=== PATIENT | female | born 1945 | race Two or more races ===

== ENCOUNTER 2020-11-26 21:36 | Inpatient (IN) | payer MEDICARE, MEDICAID ==
[~2020-11-26] VITALS: Ht 157.5 cm; Wt 74.8 kg
[2020-11-26 23:14] LABS: Basophils # (auto) 0 10 ^3/uL (0-0.2); Basophils % (auto) 0.2 % (0.0-2.0); Eosinophils # (auto) 0 10 ^3/uL (0-0.8); Eosinophils % (auto) 0.5 % (0.0-7.0); Hematocrit 41.8 % (36.0-46.0); Hemoglobin 14.2 g/dL (12.2-16.2); Lymphocytes # (auto) 2.1 10 ^3/uL (0.4-5.4); Lymphocytes % (auto) 21.5 % (10.0-50.0); Mean Corpuscular Hemoglobin 32.3 pg (28.0-32.0); Mean Corpuscular Volume 94.9 fL (80.0-100.0); Monocytes # (auto) 0.5 10 ^3/uL (0-1.3); Monocytes % (auto) 5.6 % (0.0-12.0); Neutrophils % (auto) 72.2 % (37.0-80.0); Nucleated Red Blood Cells % 0.1 %; Platelet Count (auto) 242 10^3/uL (140-450); Red Cell Distribution Width 14.7 % (11.8-14.3); White Blood Cell 9.7 10^3/uL (4.4-10.8)
[2020-11-26 23:32] LABS: Albumin 3.7 g/dL (3.4-5.0); Anion Gap 10 (5-15); Blood Urea Nitrogen 13 mg/dL (7-18); Calcium 9.3 mg/dL (8.5-10.1); Carbon Dioxide 24 mmol/L (21-32); Chloride 104 mmol/L (98-107); Glucose 196 mg/dL (74-106); Sodium 138 mmol/L (136-145)
[2020-11-26 23:34] LABS: GFR African American 114 mL/min; GFR Non-African American 94 mL/min; Lipase 199 U/L (73-393)
[2020-11-26 23:40] LABS: Alanine Aminotransferase 33 U/L (13-56); Alkaline Phosphatase 66 U/L (45-117); Aspartate Aminotransferase 49 U/L (15-37); Bilirubin, Total 0.5 mg/dL (0.2-1.0); Total Protein 7.3 g/dL (6.4-8.2)
[2020-11-27] MEDS ORDERED: IOHEXOL 300 MG/ML 100ML BOTTLE IJ ONE (01:47)
[2020-11-27 04:14] LABS: Lactic Acid w/Reflex 3.1 mmol/L (0.4-2.0)
[2020-11-27 04:22] LABS: INR 1.01 (0.9-1.15)
[2020-11-27] MEDS ORDERED: NITROGLYCERIN 0.4 MG SL TAB SL PRN (05:15)
[2020-11-27] MEDS ORDERED: MORPHINE SULF INJ 2 MG/ML SYRINGE 1ML IV PRN (05:15)
[2020-11-27] MEDS ORDERED: DEXTROSE (50%) 50ML SYRG IV PRN (05:15)
[2020-11-27] MEDS: SODIUM CHLORIDE 0.9% 1,000 ML IV SCH ×2 (05:15→17:12)
[2020-11-27] MEDS ORDERED: MORPHINE SULFATE 4 MG/ML SYR/VIAL IV PRN (05:15)
[2020-11-27] MEDS ORDERED: ONDANSETRON HCL 4 MG/2 ML VIAL IV PRN (05:15)
[2020-11-27] MEDS ORDERED: hydrALAZINE HCL 20 MG/ML VL IV PRN (05:15)
[2020-11-27] MEDS: ACCU-CHEK COMFORT CURVE STRIP VI SCH ×3 (06:45→19:11)
[2020-11-27] MEDS: InsuLIN REG 1unit/0.01ml Soln (100units/ml) SC SCH ×3 (07:14→19:11)
[2020-11-27] MEDS ORDERED: GASTROGRAFIN 120 ML SOL ONE (08:45)
[2020-11-27] MEDS: PANTOPRAZOLE 40 MG/10 ML VIAL INJ IV SCH (10:38)
[2020-11-27 11:05] LABS: Urine Bacteria NONE SEEN /hpf (None Seen); Urine Blood Negative /uL (Negative); Urine Specific Gravity 1.029 (1.001-1.035); Urine WBC 2 /hpf (0 - 5)
[2020-11-27] MEDS ORDERED: LOPERAMIDE HCL 2 MG CAP PO ONE (12:45)
[2020-11-27] MEDS ORDERED: LOPERAMIDE HCL 2 MG CAP PO PRN (12:45)
[2020-11-28] MEDS: ACCU-CHEK COMFORT CURVE STRIP VI SCH ×3 (01:00→12:00)
[2020-11-28] MEDS: InsuLIN REG 1unit/0.01ml Soln (100units/ml) SC SCH ×3 (01:10→12:00)
[2020-11-28 06:51] LABS: Basophils # (auto) 0 10 ^3/uL (0-0.2); Basophils % (auto) 0.5 % (0.0-2.0); Eosinophils # (auto) 0.1 10 ^3/uL (0-0.8); Eosinophils % (auto) 2.1 % (0.0-7.0); Hematocrit 36.8 % (36.0-46.0); Hemoglobin 12.4 g/dL (12.2-16.2); Lymphocytes # (auto) 2.1 10 ^3/uL (0.4-5.4); Lymphocytes % (auto) 32.1 % (10.0-50.0); Mean Corpuscular Hemoglobin 31.7 pg (28.0-32.0); Mean Corpuscular Hgb Conc. 33.6 g/dL (32.0-36.0); Mean Corpuscular Volume 94.3 fL (80.0-100.0); Monocytes # (auto) 0.5 10 ^3/uL (0-1.3); Monocytes % (auto) 7.2 % (0.0-12.0); Neutrophils # (auto) 3.7 10 ^3/uL (1.6-8.6); Neutrophils % (auto) 58.1 % (37.0-80.0); Nucleated Red Blood Cells % 0.1 %; Platelet Count (auto) 197 10^3/uL (140-450); Red Cell Distribution Width 14.5 % (11.8-14.3); White Blood Cell 6.4 10^3/uL (4.4-10.8)
[2020-11-28 07:17] LABS: Calcium 8.1 mg/dL (8.5-10.1); Potassium 3.3 mmol/L (3.5-5.1)
[2020-11-28 07:23] LABS: BUN/Creatinine Ratio 12.7; Bilirubin, Total 0.6 mg/dL (0.2-1.0); Total Protein 5.8 g/dL (6.4-8.2)
[2020-11-28 08:00] VITALS: BP 141/72
[2020-11-28] MEDS ORDERED: GAB100C PO (09:44)
[2020-11-28] MEDS ORDERED: LOSA-69 PO (09:44)
[2020-11-28] MEDS ORDERED: OMEP-260 PO (09:44)
[2020-11-28] MEDS ORDERED: ATOR20TA50 PO (09:44)
[2020-11-28] MEDS ORDERED: GLIP5TAB12 PO (09:44)
[2020-11-28] MEDS ORDERED: METF-869 PO (09:44)
[2020-11-28] MEDS: PANTOPRAZOLE 40 MG/10 ML VIAL INJ IV SCH (10:00)
== END 2020-11-28 12:55 | disposition home or self-care (01) | DRG 390 ==
LOC: EDBD 21:36 → ER 21:43 → TELE 11-27 05:13 → TELE-CENTR 11-28 07:51
PROVIDERS: ADMIT Nurse Practitioner; ATTEND Family Medicine
DX: K56.609 Unspecified intestinal obstruction, unspecified as to partial versus complete obstruction (principal); E11.9 Type 2 diabetes mellitus without complications; Z20.822 Contact with and (suspected) exposure to COVID-19; E66.9 Obesity, unspecified; I10 Essential (primary) hypertension; Z90.710 Acquired absence of both cervix and uterus; Z88.0 Allergy status to penicillin; Z68.30 Body mass index [BMI] 30.0-30.9, adult
CPT/HCPCS: 36415; 74177; 74250; 80053; 81001; 82962; 83605; 83690; 84484; 85025; 85610; 87426; 93005; 96361; 96374; C9113; G0378; J1815; J2405